=== PATIENT | male | born 1955 | race Caucasian/White ===

== ENCOUNTER 2016-02-25 06:19 | Day surgery (SDC) | payer BC ==
[~2016-02-25 06:19] MED LIST: ACETAMINOPHEN 500 MG TABLET PO PRN; HYDROmorphone HCL 2 MG/ML VIAL IV PRN; MAG HYDROX/ALUMINUM HYD/SIMETH 30 ML UDC PO PRN; MAGNESIUM HYDROXIDE 30 ML UDC PO PRN; ONDANSETRON HCL/PF 2 MG/ML VIAL IV PRN; PROMETHAZINE HCL 25 MG in DEXTROSE 5 % IN WATER 50 ML IV PRN; RINGERS SOLUTION,LACTATED 1,000 ML IV PRN; ZOLPIDEM TARTRATE 5 MG TABLET PO PRN; ceFAZolin SODIUM 1 GM VIAL IV PRN; diphenhydrAMINE HCL 50 MG/ML VIAL IV PRN; oxyCODONE HCL/ACETAMINOPHEN 1 TAB TABLET PO PRN
[2016-02-25] MEDS ORDERED: RINGERS SOLUTION,LACTATED 1,000 ML IV ONE ×2 (06:58→09:10)
--- NOTE | 2016-02-25 10:05 | OR ---
Operative Report - Dictated Report Narrative: Date: 02/25/2016 Physician: Iain Foster M.D. Turntable Operator: Chip Benítez PA-C Preoperative diagnosis: Right Shoulder recurrent massive rotator cuff tear Postoperative diagnosis: Right Shoulder recurrent massive rotator cuff tear, biceps tendinopathy, labral tear, retained suture Procedure: Right shoulder arthroscopy with biceps tenodesis, labral debridement , rotator cuff debridement, removal of retained suture Anesthesia: General plus regional Complications: None Estimated blood loss: Minimal Specimens: None Retained implants: [employer] 4.5 mm peek helicoil anchor 1 Drains: None Indications: Mr. Wade Is a 60 year-old gentleman who has been followed in my clinic with complaints of shoulder pain consistent rotator cuff tear. He apparently had undergone a rotator cuff repair approximately 10 years ago. Physical exam and diagnostic imaging were consistent with his complaints and concern for recurrent massive rotator cuff tear with retraction. Conservative measures have failed including, but not limited to, passage of time, activity modification, medications, physical therapy/home exercise program, or injections. The risks, benefits, and alternatives were discussed in clinic. The risks being , bleeding, infection, blood clots, nerve, tendon, ligament , blood vessel injury, persistent pain, arthrosis, stiffness, need for prolonged therapy, need for additional procedures, and persistent symptoms. Consent was obtained in the clinic. Procedure: After marking the correct extremity in the preoperative holding area, a timeout was performed in the operating room. IV antibiotics consisting of Ancef were administered prior to the procedure. A general followed by regional anesthetic was induced by the nurse java [email or web address] lead. This was in the supine position, then the patient was transitioned to a beachchair position with all bony prominences well-padded, head in neutral, the nonoperative arm well supported, and the legs padded with SCDs in place. The operative shoulder was then prepped and draped in a standard sterile fashion. Preoperatively the shoulder had full passive range of motion, and no gross instability noted crepitance. After marking out the bony landmarks, saline was infused into the joint through a posterior lateral portal site. A rosenda incision was made, and the blunt trocar and cannula was introduced into the shoulder joint. An accessory portal was placed in the rotator cuff interval using a spinal needle for guidance. Upon initial evaluation, the biceps tendon showed notable fraying and instability. The middle glenohumeral ligament was frayed but intact. Subscapularis tendon was frayed but aren't arm. The glenoid showed mild to moderate degenerative change. The humeral head articular surface showed moderate degenerative changes with focal articular cartilage loss in the posterior aspect of the humeral head. The anterior labrum was frayed. The superior labrum was frayed. The pouch was unremarkable. The posterior labrum was frayed but intact. The supraspinatus tendon was absent. There were apparently 3 anchors with nonabsorbable suture which were shaved out using a lateral portal and a shaver. The tuberosity was debrided of its soft tissues. The rotator cuff muscle and tendon were liberated from the labrum and an attempt was made to mobilize this laterally. This was at the level of the glenohumeral joint and once mobilized was able to make it to approximately a centimeter and a half short of the tuberosity. The remaining tendon was significantly torn and did not appear to be in good condition. The infraspinatus tendon was intact to her previously been repaired over the posterior aspect. Utilizing his lateral incision from his prior mini open rotator cuff repair, a tag stitches placed the biceps tendon tenotomy was performed of the biceps as it inserted onto the labrum. The remaining labrum was debrided. The torn and frayed rotator cuff tendon was also debrided. Attention was then turned to the subacromial space. Subacromial bursectomy was performed utilizing the prior portals. His notable scar tissue about the subacromial space and an attempt was made to free the rotator cuff into the subacromial area however it appear to be that the tendon was torn at the musculotendinous junction anteriorly. In order to attempt to repair this portion of the rotator cuff, his lateral incision was extended utilizing his prior incision site. The deltoid was split and multiple techniques were utilized in order to free mobilize the rotator cuff tendon however was not able to be mobilized to a point where it would be repairable. The remaining bursal tissue was removed and an accessory anterior portal was placed over the biceps groove. The biceps tendon was mobilized out of the joint and a helical anchor was placed into the bicipital groove after rasping this. This was then tenodesis down to the groove. The extra biceps tendon was then excised. The wounds were thoroughly irrigated. 0 Vicryl was utilized in order to repair the deltoid fascia. 3-0 Vicryl was placed in the subcutaneous tissue. The rotator cuff incision as well as the portal sites were closed with interrupted nylon. Dressings consisting of Xeroform, 4 x 4, ABD, soft roll, and tape were applied. All sponge, needle, blade, and instrument counts were correct prior to closing the wounds. The patient was awoken and transferred to the postanesthesia care unit in stable condition.
[2016-02-25] MEDS ORDERED: HYDROmorphone HCL 2 MG/ML VIAL IV PRN (10:12)
[2016-02-25] MEDS ORDERED: ONDANSETRON HCL/PF 2 MG/ML VIAL IV PRN (10:12)
[2016-02-25] MEDS ORDERED: NALOXONE HCL 0.4 MG/ML VIAL IV PRN (10:12)
[2016-02-25] MEDS ORDERED: diphenhydrAMINE HCL 50 MG/ML VIAL IV PRN (10:12)
[2016-02-25 12:34] VITALS: BP 129/76
[2016-02-25] MEDS ORDERED: SENNOSIDES/DOCUSATE SODIUM 1 TAB TABLET PO SCH (21:00)
== END 2016-02-25 06:20 | disposition home or self-care (01) ==
LOC: AMB 06:19
PROVIDERS: ATTEND Orthopaedic Surgery
PROC: 0LS30ZZ Reposition Right Upper Arm Tendon, Open Approach (ICD-10-PCS; 2016-02-25)
PROC: 0RBJ4ZZ Excision of Right Shoulder Joint, Percutaneous Endoscopic Approach (ICD-10-PCS; principal; 2016-02-25 08:00)
DX: M75.101 Unspecified rotator cuff tear or rupture of right shoulder, not specified as traumatic (principal); S43.491A Other sprain of right shoulder joint, initial encounter; I10 Essential (primary) hypertension; E78.5 Hyperlipidemia, unspecified; M13.80 Other specified arthritis, unspecified site; Z68.26 Body mass index [BMI] 26.0-26.9, adult; Z72.0 Tobacco use